=== PATIENT | male | born 1980 | race Caucasian/White ===

== ENCOUNTER → 2016-12-24 | Outpatient (CLI) | payer BC ==
--- NOTE | 2016-12-24 09:12 | Diagnostic Imaging Report ---
Clinical indication: Pre-MRI clearance. Patient states possibility of metallic fragments in eye. Exam: X-ray of the skull, AP view of the orbits. Comparison: None. Findings and impression: 1: There is no evidence of radiodense foreign object on this exam. Subtle focal areas of high density overlying the skull likely represent screen film artifact. 2: There is no craniofacial bone abnormality. 3: There is mild to moderate mucosal thickening involving left maxillary sinus and suspected at least mild mucosal thickening involving the right maxillary sinus. Dictated by: Dictated on workstation # [id number]
--- NOTE | 2016-12-24 09:59 | Diagnostic Imaging Report ---
PROCEDURE: MRI left joint lower extremity without contrast. TECHNIQUE: Multiplanar, multisequence non contrast-enhanced MRI of the left knee was accomplished. INDICATION: Knee pain mostly medially. AVAILABLE COMPARISONS: None The anterior and posterior cruciate ligaments are within normal limits. The MCL complex is normal. The popliteus tendon, fibular collateral ligament, iliotibial tract, and biceps femoris tendons are within normal limits. Lateral meniscus is within normal limits. The posterior horn of the medial meniscus is abnormal. Abnormal signal is present in the posterior horn extending from the posterior capsular margin into the body of the medial meniscus. This signal comes close to the articular surface and probably communicates with the articular surface, consistent with degenerative tear rather than myxoid degenerative change only. A small joint effusion is present. No osteochondral lesion is seen. The patella is in normal position. The patellar and quadriceps tendons are within normal limits. Patchy areas of altered bone marrow signal present in the distal femur, proximal tibia and proximal fibula. IMPRESSION: 1. Abnormal medial meniscus, consistent with degenerative change and probable horizontal degenerative tear. 2. Small joint effusion. 3. Bone marrow changes present likely normal red marrow variant rather than marrow disorder. Dictated by: Dictated on workstation # [id number]
== END ==
LOC: RAD 07:44
PROVIDERS: ATTEND Family Medicine
DX: M25.562 Pain in left knee (principal); Z77.018 Contact with and (suspected) exposure to other hazardous metals; M25.462 Effusion, left knee
CPT/HCPCS: 70140; 73721